=== PATIENT | female | born 1935 | race Caucasian/White ===

== ENCOUNTER → 2016-06-27 | Day surgery (SDC) | payer MEDICARE, BC ==
[~2016-06-27] MED LIST: Heparin Sodium 5,000 Units/ML Vial ONE; Heparin Sodium 5,000 Units/ML Vial SUBCUT ONE; Lactated Ringers 1,000 ML IV SCH; Lidocaine 1% 2 ML SDV ONE; Lidocaine 1% 30 ML SDV ONE; Lidocaine 1%/Sod Bicarbonate in NS 8.4% 1 ML Syringe IV PRN; Propofol 200 MG/20 ML SDV ONE; Sodium Chloride 0.9% 10 ML Syringe FLUSH PRN; fentaNYL 100 MCG/2 ML SDV ONE
--- NOTE | 2016-06-27 13:27 | PCM.PREANE ---
Preanesthetic Assessment - ANESTHESIA/TRANSFUSION/FAMILY HX Anesthesia/Transfusion History: No Prior Transfusion(s), Prior Anesthesia Type of Anesthesia Reaction: Denies: Allergy, Anesthesia Awareness, Excessive Somnolence, Excessive Nausea/Vomiting, Excessive Itching, Excessive Shivering, Malignant Hyperthermia, Malignant Hyperthermia, Family History, Pseudocholinesterase Deficiency, Pseudocholinesterase Deficiency, Family History of, Urinary Retention, Unknown, Other (see below) Family History of Anesthesia Reaction: No Intubation History: Unknown - REVIEW OF SYSTEMS Constitutional: Reports: no symptoms MANAGER REGISTRATION: Reports: stroke/TIA (History of stroke in January 2016, history of occlusion of Left ICA and MRI of the brain showed multiple small acute infarcts within the left temporal and parietal region.), weakness Respiratory: Reports: no symptoms (History of COPD/quit smoking 1999.), cough ( A littole cough noted which is normal for patient.), wheezing (with exertion noted along with KELLER) Cardiovascular: Reports: dyspnea on exertion GI: Reports: no symptoms Other: Reports: easy bleeding, easy bruising (Patient on plavix with history of cerebral infarct with carotid artery occlusion in), thyroid problems ( hypothyroid) - PHYSICAL ASSESSMENT HR: 75 O2 Sat by Pulse Oximetry: 94 RR: 16 BP: 147/66 Temp: 36.8 C Height: 1.57 m Weight: 59.421 kg NPO Status Date: 06/27/16 NPO Status Time: 10:00 ( NPO with solids at 1800, few sips of black coffee at 1000) ASA Class: 3 Mental Status: alert & oriented x3 Airway Class: Mallampati = 2 Dentition: Reports: dentures (upper), partial (bottom) Thyro-Mental Finger Breadths: 3 Mouth Opening Finger Breadths: 3 ROM/Head Extension: full Respiratory Status: lungs clear to auscultation bilaterally Cardiovascular Status: regular rate & rhythm, normal S1, S2, no murmur - LAB Values: Reviewed and noted. - IMAGING/EKG Impressions: Holter monitor interpretation per H/P states unremarkable. - ALLERGIES Allergies/Adverse Reactions: Allergies Allergy/AdvReac Type Severity Reaction Status Date / Time No Known Drug Allergies Allergy Other Verified 06/24/16 12:22 - ANESTHESIA PLAN Preop Beta Yuan: No Anesthesia Type Planned: MAC (Local- Mac) - ACKNOWLEDGEMENTS Pt an appropriate candidate for the planned anesthesia: Yes Alternatives and risks of anesthesia discussed w pt/guardian: Yes Pt/Guardian understands and agree with anesthesia plan: Yes PreAnesthesia Questionnaire Cardiovascular History: Reports: Blood clots/VTE/DVT Other Cardiovascular History: internal carotid artery occlusion Respiratory History: Reports: COPD Neurological History: Reports: Other (see below) Other Neuro History: aphasia, focal infarction of brain Endocrine/Metabolic History: Reports: Other (see below) Other Endocrine/Metabolic History: thyroid disease Hematologic History: Reports: Other (see below) Other Hematologic History: thrombocytosis Oncologic (Cancer) History: Reports: Other (see below) Other Oncologic History: basal cell Other Dermatologic History: thrombophlebitis - Past Surgical History Dermatological Surgical History: Reports: Skin biopsy, Skin graft - SUBSTANCE USE Smoking Status *Q: Former Smoker Tobacco Use Within Last Twelve Months: Cigarettes - HOME MEDS Home Medications: Home Meds Albuterol/Ipratropium [Combivent Respimat] 06/24/16 [History] Aspirin 81 mg PO DAILY 06/24/16 [History] Budesonide/Formoterol Fumarate [Symbicort 80-4.5 Mcg Inhaler] 06/24/16 [History ] Calcium Carbonate 500 mg PO DAILY 06/24/16 [History] Clopidogrel [Plavix] 75 mg PO DAILY 06/24/16 [History] Levothyroxine [Synthroid] 100 mcg IA DAILY 06/24/16 [History] Rosuvastatin [Crestor] 10 mg PO DAILY 06/24/16 [History] - CURRENT (IN HOUSE) MEDS Current Meds: Current Medications Discontinued Medications Lactated Ringer's (Ringers, Lactated) 1,000 mls @ 125 mls/hr IV ASDIRECTED KARLEY Stop: 06/24/16 23:00 Lidocaine/Sodium Bicarbonate (Buffered Lidocaine 1% In Ns 8.4%) 0.25 ml IV ONETIME PRN PRN Reason: Prior to IV Start Stop: 06/24/16 18:00 Sodium Chloride (Saline Flush) 10 ml FLUSH ASDIRECTED PRN PRN Reason: Keep Vein Open Stop: 06/24/16 18:00
--- NOTE | 2016-06-27 15:15 | PCM48HPAN ---
Post Anesthesia Note - EVALUATION WITHIN 48HRS OF ANESTHETIC Vital Signs in Normal Range: Yes Patient Participated in Evaluation: Yes Respiratory Function Stable: Yes Airway Patent: Yes Cardiovascular Function Stable: Yes Hydration Status Stable: Yes Pain Control Satisfactory: Yes Nausea and Vomiting Control Satisfactory: Yes Mental Status Recovered: Yes
--- NOTE | 2016-06-27 15:19 | PCM.OPNOTE ---
- General Post-Op/Procedure Note Date of Surgery/Procedure: 06/27/16 Operative Procedure(s): Bone marrow biopsy and aspiration Pre Op Diagnosis: Thrombocytosis of uncertain etiology Post-Op Diagnosis: Same Anesthesia Technique: Local (20 mL), MAC Primary Surgeon: Sulma Sargent Anesthesia Provider: Marilee Sylvester Pathology: Gallbladder Fluid Replacement, Intraop: 500 (mL crystalloid) EBL in mLs: 10 (Marrow aspirated) Complications: None Condition: Good Free Text/Narrative:: Indication for Procedure: The patient is a 80-year-old woman was referred to me by Dr. Nadia Dawn for bone marrow biopsy for further work-up of thrombocytosis or uncertain etiology. I discussed with the patient bone marrow biopsy and associated risks of the procedure. The patient found these risks acceptable and agreed to proceed. With her neurologist's approval, she had held her Plavix for 5 days prior to the procedure. Description of Procedure: The patient was taken to the operating room and placed in the right lateral decubitus position. After induction of adequate sedation, the left posterior iliac crest was identified anatomically and the area was prepped with chlorhexidine. 20 mL of local anesthetic was injected into the target insertion site into the posterior iliac crest and associated periosteum. A small stab incision was made using a scalpel after a sterile drape was applied. A [employer] bone marrow biopsy kit was utilized. The bone marrow core biopsy needle was introduced into the posterior iliac crest and the inner cannula removed. 10 mL of bone marrow was rapidly aspirated without difficulty and this was immediately placed into a Heparinated syringe and given to pathology directly. The bone marrow biopsy needle was removed and pressure was held. The inner cannula was replaced and the biopsy trocar was once again introduced through the incision site and placed in a slightly different position on the posterior iliac crest for obtaining a core bone marrow sample. A core sample was obtained and handed off directly to pathology for slide preparation in a sterile fashion. The sample did appear to be adequate. Pressure was held at the incision site for a total of 5 minutes. Gauze and a band-aid was applied. The patient was returned to a supine position and pressure was placed on the biopsy site. An additional peripheral blood specimen during was drawn during today's visit for pathology for performance of CBC. The patient was awakened from sedation and returned to the recovery room in stable condition having tolerated the procedure well. Sponge and instrument counts were reported as correct at the end of the case. Postoperative Plan: The patient will be contacted by Dr. Dawn's office regarding their bone marrow biopsy results. The patient is to call my office with any questions or concerns regarding the bone marrow biopsy site or concerns regarding the procedure.
[2016-06-27 16:08] VITALS: BP 165/80
== END | disposition home or self-care (01) ==
LOC: JD.SDS 13:09
PROVIDERS: ATTEND Surgery
DX: D47.3 Essential (hemorrhagic) thrombocythemia (principal); D72.0 Genetic anomalies of leukocytes; J44.9 Chronic obstructive pulmonary disease, unspecified; E07.9 Disorder of thyroid, unspecified; Z98.890 Other specified postprocedural states; Z79.82 Long term (current) use of aspirin; Z79.899 Other long term (current) drug therapy; Z87.891 Personal history of nicotine dependence
CPT/HCPCS: 36415; 38221; 80048; 81270; 85025; 85097; 88184; 88185; 88187; 88188; 88189; 88305; 88311; 88313; 88341; 88342; J1644; J3010; J7120; 01112; J2704

== ENCOUNTER 2018-12-20 07:35 | Day surgery (SDC) | payer MEDICARE, BC ==
[~2018-12-20 07:35] MED LIST changes: +Cefuroxime 10 MG/ML SYRINGE EYELF SCH; -Heparin Sodium 5,000 Units/ML Vial ONE; -Heparin Sodium 5,000 Units/ML Vial SUBCUT ONE; -Lactated Ringers 1,000 ML IV SCH; -Lidocaine 1% 2 ML SDV ONE; -Lidocaine 1% 30 ML SDV ONE; +Lidocaine 1% PF 2 ML SDV INJECT SCH; -Lidocaine 1%/Sod Bicarbonate in NS 8.4% 1 ML Syringe IV PRN; +Pilocarpine 4% Ophth Soln 15 ML Bot EYELF SCH; -Propofol 200 MG/20 ML SDV ONE; -Sodium Chloride 0.9% 10 ML Syringe FLUSH PRN; -fentaNYL 100 MCG/2 ML SDV ONE
[2018-12-20] MEDS: Polymyxin B/Trimethoprim 10 ML Bottle EYELF SCH ×3 (08:00→10:05)
[2018-12-20] MEDS: Brimonidine 0.2% Ophth Soln 15 ML Bottle EYELF SCH ×3 (08:05→10:05)
[2018-12-20] MEDS: Phenylephrine 2.5% Ophth Soln 2 ML Bot EYELF SCH ×5 (08:10→09:44)
--- NOTE | 2018-12-20 08:10 | PCM.PREANE ---
Preanesthetic Assessment - Anesthesia/Transfusion/Family Hx Anesthesia History: Prior Anesthesia Without Reaction Family History of Anesthesia Reaction: No Transfusion History: No Prior Transfusion(s) - Review of Systems General: No Symptoms Pulmonary: No Symptoms Cardiovascular: No Symptoms Gastrointestinal: No Symptoms Neurological: No Symptoms Other: Reports: None - Physical Assessment NPO Status Date: 12/19/18 NPO Status Time: 21:00 Vital Signs: Last Vital Signs Temp 36.5 C 12/20/18 07:45 Pulse 63 12/20/18 07:45 Resp 16 12/20/18 07:45 BP 134/63 12/20/18 07:45 Pulse Ox 94 L 12/20/18 07:45 Height: 1.63 m Weight: 62.596 kg ASA Class: 2 Mental Status: Alert & Oriented x3 Airway Class: Mallampati = 1 Dentition: Reports: Dentures (upper), Partial (lower) Thyro-Mental Finger Breadths: 3 Mouth Opening Finger Breadths: 3 ROM/Head Extension: Full Lungs: Clear to Auscultation, Normal Respiratory Effort Cardiovascular: Regular Rate, Regular Rhythm - Allergies Allergies/Adverse Reactions: Allergies Allergy/AdvReac Type Severity Reaction Status Date / Time No Known Drug Allergies Allergy Other Verified 12/19/18 13:59 - Acknowledgements Anesthesia Type Planned: MAC Pt an Appropriate Candidate for the Planned Anesthesia: Yes Alternatives and Risks of Anesthesia Discussed w Pt/Guardian: Yes Pt/Guardian Understands and Agrees with Anesthesia Plan: Yes PreAnesthesia Questionnaire HEENT History: Reports: Cataract Cardiovascular History: Reports: Blood Clots/VTE/DVT, SOB on Exertion Other Cardiovascular History: internal carotid artery occlusion Respiratory History: Reports: COPD, SOB (pt states SOB with exertion) Musculoskeletal History: Reports: Arthritis Neurological History: Reports: Other (See Below) Other Neuro History: aphasia, focal infarction of brain Endocrine/Metabolic History: Reports: Other (See Below) Other Endocrine/Metabolic History: thyroid disease Hematologic History: Reports: Other (See Below) Other Hematologic History: thrombocytosis Oncologic (Cancer) History: Reports: Other (See Below) Other Oncologic History: basal cell Other Dermatologic History: thrombophlebitis - Past Surgical History HEENT Surgical History: Reports: Cataract Surgery GI Surgical History: Reports: Appendectomy Dermatological Surgical History: Reports: Skin Biopsy, Skin Graft - HOME MEDS Home Medications: Home Meds Albuterol/Ipratropium [Combivent Respimat] 1 puff INH ASDIRECTED 06/24/16 [ History] Budesonide/Formoterol Fumarate [Symbicort 80-4.5 Mcg Inhaler] 2 puff INH DAILY 06/24/16 [History] Clopidogrel [Plavix] 75 mg PO DAILY 06/24/16 [History] Levothyroxine [Synthroid] 100 mcg IA DAILY 06/24/16 [History] Clopidogrel Bisulfate [Clopidogrel] 75 mg PO DAILY 11/14/18 [History] Folic Acid 1 mg PO DAILY 11/14/18 [History] Hydroxyurea [Hydrea] 500 mg PO DAILY 11/14/18 [History] Rosuvastatin Calcium 20 mg PO DAILY 11/14/18 [History] - CURRENT (IN HOUSE) MEDS Current Meds: Current Medications Brimonidine Tartrate (Brimonidine Tartrate 0.2% Ophth Soln) 0 ml EYELF ASDIRECTED KARLEY Stop: 12/20/18 18:00 Cefuroxime Sodium (Zinacef) 0 mg EYELF ASDIRECTED KARLEY Stop: 12/20/18 18:00 Lidocaine HCl (Xylocaine-Mpf 1%) 0 ml INJECT ASDIRECTED KARLEY Stop: 12/20/18 18:00 Phenylephrine HCl (Aristides-Synephrine 2.5% Ophth Soln) 0 ml EYELF ASDIRECTED KARLEY Stop: 12/20/18 18:00 Pilocarpine HCl (Pilocar 4% Ophth Soln) 0 ml EYELF ASDIRECTED KARLEY Stop: 12/20/18 18:00 Polymyxin/Trimethoprim Sulfate (Polytrim Ophth Soln) 0 ml EYELF ASDIRECTED KARLEY Stop: 12/20/18 18:00 Last Admin: 12/20/18 08:00 Dose: 1 drop Tetracaine HCl (Tetracaine 0.5% Steri-Unit Hien) 0 ml EYELF ASDIRECTED KARLEY Stop: 12/20/18 18:00 Tropicamide (Mydriacyl 1% Ophth Soln) 0 ml EYELF ASDIRECTED KARLEY Stop: 12/20/18 18:00
[2018-12-20] MEDS: Tropicamide 1% Ophth Soln 15 ML Bottle EYELF SCH ×4 (08:15→09:10)
[2018-12-20] MEDS: Tetracaine HCl/PF 0.5% 4 ML Bottle EYELF SCH ×2 (09:38→09:52)
--- NOTE | 2018-12-20 10:07 | PCM48HPAN ---
Post Anesthesia Note - EVALUATION WITHIN 48HRS OF ANESTHETIC Vital Signs in Normal Range: Yes Patient Participated in Evaluation: Yes Respiratory Function Stable: Yes Airway Patent: Yes Cardiovascular Function Stable: Yes Hydration Status Stable: Yes Pain Control Satisfactory: Yes Nausea and Vomiting Control Satisfactory: Yes Mental Status Recovered: Yes Vital Signs: Last Vital Signs Temp 36.5 C 12/20/18 07:45 Pulse 63 12/20/18 07:45 Resp 16 12/20/18 07:45 BP 134/63 12/20/18 07:45 Pulse Ox 94 L 12/20/18 07:45
[2018-12-20 10:26] VITALS: BP 140/60
== END 2018-12-20 10:17 | disposition home or self-care (01) ==
LOC: JD.SDS 07:35
PROVIDERS: ATTEND Ophthalmology
DX: H25.812 Combined forms of age-related cataract, left eye (principal); H21.81 Floppy iris syndrome; H21.42 Pupillary membranes, left eye; E03.9 Hypothyroidism, unspecified; J44.9 Chronic obstructive pulmonary disease, unspecified; M19.90 Unspecified osteoarthritis, unspecified site; Z79.899 Other long term (current) drug therapy; Z79.02 Long term (current) use of antithrombotics/antiplatelets
CPT/HCPCS: 66982; J0697; J2001; V2632

== ENCOUNTER 2021-06-27 04:22 | Emergency (ER) | payer MEDICARE, BC ==
[2021-06-27 06:05] VITALS: BP 135/89; PULSE 88
== END 2021-06-27 09:07 | disposition home or self-care (01) ==
LOC: JD.ED 04:22
DX: R07.89 Other chest pain (principal); K21.9 Gastro-esophageal reflux disease without esophagitis; J44.9 Chronic obstructive pulmonary disease, unspecified; Z79.82 Long term (current) use of aspirin; Z79.02 Long term (current) use of antithrombotics/antiplatelets; Z79.899 Other long term (current) drug therapy
CPT/HCPCS: 36415; 71045; 71045-26; 80053; 84484; 85025; 85610; 93005; 93010; 99284; 99285-25

== ENCOUNTER 2021-07-18 11:34 | Emergency (ER) | payer MEDICARE, BC ==
[2021-07-18 12:24] VITALS: BP 179/83; PULSE 79
[2021-07-18] MEDS ORDERED: Sodium Chloride 0.9% 10 ML Syringe FLUSH PRN (12:44)
[2021-07-18] MEDS ORDERED: Furosemide 20 MG Tab PO ONE (14:17)
== END 2021-07-18 14:29 | disposition home or self-care (01) ==
LOC: JD.ED 11:34
DX: R60.9 Edema, unspecified (principal); R06.01 Orthopnea; J44.9 Chronic obstructive pulmonary disease, unspecified; Z79.82 Long term (current) use of aspirin; Z79.02 Long term (current) use of antithrombotics/antiplatelets; Z79.899 Other long term (current) drug therapy
CPT/HCPCS: 36415; 71046; 80053; 81001; 83880; 84484; 85025; 85379; 86140; 93005; 99285; A9270; 93010